=== PATIENT | male | born 2000 | race Caucasian/White ===

== ENCOUNTER 2024-10-08 17:09 | Emergency (ER) | payer MEDICAID ==
[~2024-10-08] VITALS: Ht 177.8 cm; Wt 100.0 kg
[2024-10-08 17:15] VITALS: O2SAT 99
[2024-10-08 18:20] LABS: BASOPHILS % 0.2 % (0.0-2.0); EOSINOPHILS % 0.4 % (0.0-5.0); HEMATOCRIT. 47.2 % (42.0-52.0); HEMOGLOBIN. 15.7 g/dL (14.0-18.0); LYMPHOCYTES % 15.8 % (20.0-50.0); MEAN CORPUSCULAR HEMOGLOBIN 30.6 pg (28.0-32.0); MEAN CORPUSCULAR HGB CONC 33.2 g/dL (31.0-37.0); MEAN CORPUSCULAR VOLUME 92.1 fL (80.0-94.0); MEAN PLATELET VOLUME 7.8 fl (7.4-10.4); MONOCYTES % 7.8 % (2.0-8.0); NEUTROPHILS % 75.8 % (40.0-76.0); PLATELET 148 x1000/uL (130-400); RED BLOOD CELL COUNT 5.13 mill/uL (4.7-6.1); RED CELL DISTRIBUTION WIDTH 14.5 % (11.6-14.6); WHITE BLOOD COUNT 8.4 x1000/uL (4.5-11.0)
[2024-10-08 18:28] LABS: CARBON DIOXIDE 28 mEq/L (21-32); CHLORIDE 103 mEq/L (98-107); POTASSIUM 4.4 mEq/L (3.5-5.1); SODIUM 140 mEq/L (136-145)
[2024-10-08 18:29] LABS: CALCIUM 9.5 mg/dL (8.7-10.4)
[2024-10-08 18:31] LABS: PROTHROMBIN TIME 10.9 sec (9.6-11.0)
[2024-10-08 18:34] LABS: CREATININE 1.1 mg/dL (0.6-1.3); GLUCOSE 122 mg/dL (70-105); UREA NITROGEN BLOOD 15 mg/dL (9-23)
[2024-10-08 18:35] LABS: ALANINE AMINOTRANSFERASE 46 IU/L (10-49); ALBUMIN 4.3 g/dL (3.2-4.8); ASPARTATE AMINOTRANSFERASE 19 IU/L (<34); TROPONIN I HIGH SENSITIVITY 21 ng/L (3.0-53)
[2024-10-08 18:36] LABS: BILIRUBIN DIRECT 0.2 mg/dL (<=3.0); CREATINE KINASE 69 IU/L (46-171); PROTEIN TOTAL 6.9 g/dL (6.0-8.3)
[2024-10-08 18:39] LABS: CLARITY URINE CLEAR (CLEAR); COLOR URINE YELLOW (YELLOW); GLUCOSE URINE NEGATIVE (NEGATIVE); KETONES URINE NEGATIVE (NEGATIVE); LEUKOCYTE ESTERASE URINE NEGATIVE (NEGATIVE); NITRITE URINE NEGATIVE (NEGATIVE); OCCULT BLOOD URINE NEGATIVE (NEGATIVE); PROTEIN URINE NEGATIVE (NEGATIVE); SPECIFIC GRAVITY URINE 1.009 (1.005-1.030)
[2024-10-08 20:36] LABS: TROPONIN I HIGH SENSITIVITY 23 ng/L (3.0-53)
[2024-10-09] MEDS: LORAZEPAM 1MG TABLET PO ONE (02:13)
[2024-10-09] MEDS: METOPROLOL TARTRATE 25MG TABLET PO ONE (02:16)
[2024-10-09 02:24] VITALS: BP 152/107; PULSE 81; RESP 18; TEMP 37; O2SAT 99
== END 2024-10-09 02:50 ==
LOC: ER 17:09
DX: G24.09 Other drug induced dystonia (principal); I10 Essential (primary) hypertension
CPT/HCPCS: 36415; 71045; 80048; 80076; 81003; 82550; 84484; 85025; 93005; 99285